=== PATIENT | male | born 1940 | race Caucasian/White ===

== ENCOUNTER 2020-04-03 05:58 | Emergency (ER) | payer MEDICARE, BC ==
[~2020-04-03] VITALS: Ht 182.9 cm; Wt 100.0 kg
[2020-04-03] MEDS ORDERED: morphine 4 MG/ML inj SYRINge IV ONE (06:30)
[2020-04-03 06:43] LABS: ALANINE AMINOTRANSFERASE 29 U/L (12-78); ALBUMIN 3.6 G/DL (3.4-5.0); ALKALINE PHOSPHATASE 80 IU/L (46-116); ANION GAP 8 (8-16); ASPARTATE AMINO TRANSFERASE 18 U/L (10-37); BILIRUBIN,TOTAL 0.6 MG/DL (0.1-1.0); BLOOD UREA NITROGEN 25 MG/DL (7-18); BUN/CREATININE RATIO 17.2 (5.4-32.0); CALCIUM 8.7 MG/DL (8.5-10.1); CHLORIDE 106 MMOL/L (99-107); CREATININE 1.45 MG/DL (0.60-1.10); GLUCOSE 146 MG/DL (70-104); POTASSIUM 4.2 MMOL/L (3.5-5.1); SODIUM 141 MMOL/L (135-145); TOTAL CARBON DIOXIDE 27.1 MMOL/L (24-32); TOTAL PROTEIN 7.2 G/DL (6.4-8.2); eGFR 47 ML/MIN
[2020-04-03 06:46] LABS: BASOPHILS # (AUTO) 0.1 X10'3 (0-0.2); BASOPHILS % (AUTO) 0.5 % (0-1); EOSINOPHILS # (AUTO) 0.1 X10'3 (0-0.9); EOSINOPHILS % (AUTO) 0.6 % (0-6); HEMOGLOBIN 13.7 g/dl (14.0-17.9); LYMPHOCYTES # (AUTO) 0.9 X10'3 (1.1-4.8); LYMPHOCYTES % (AUTO) 7.1 % (21-51); MEAN CORPUSCULAR HGB CONC 33.3 g/dL (33.0-36.5); MEAN CORPUSCULAR VOLUME 96.2 FL (78-98); MEAN PLATELET VOLUME 9.5 FL (7.4-10.4); MONOCYTES # (AUTO) 0.9 X10'3 (0-0.9); MONOCYTES % (AUTO) 7.5 % (2-12); NEUTROPHILS # (AUTO) 10.5 X10'3 (1.8-7.7); NEUTROPHILS % (AUTO) 84.3 % (42-75); PLATELET COUNT 172 X10'3 (140-440); RED BLOOD COUNT 4.27 X10'6 (4.70-6.10); RED CELL DISTRIBUTION WIDTH 14.7 % (11.5-14.5); WHITE BLOOD COUNT 12.4 X10'3 (4.5-11.0)
[2020-04-03] MEDS ORDERED: iohexol 300mg/ml 100ml inj. ONE (06:52)
--- NOTE | 2020-04-03 07:05 | NUR ---
OUT TO CT VIA GURNEY WITH PRIMARY RN
--- NOTE | 2020-04-03 07:20 | NUR ---
pt cleared off of trauma status after provider read CT report
--- NOTE | 2020-04-03 07:28 | NUR ---
RETURNS FROM CT
[2020-04-03] MEDS ORDERED: morphine 10mg/ml inj. IV ONE (07:45)
[2020-04-03] MEDS ORDERED: HYDROmorphone 1 mg/ml syringe IV ONE (07:45)
[2020-04-03] MEDS ORDERED: OXYC-145 PO (09:47)
[2020-04-03] MEDS ORDERED: IBUP-1985 PO (09:47)
[2020-04-03] MEDS ORDERED: oxyCODONE/APAP 5-325mg tablet PO ONE (11:25)
[2020-04-03 11:58] VITALS: BP 114/79
== END 2020-04-03 12:00 | disposition home or self-care (01) ==
LOC: ER 05:58
DX: S62.112A Displaced fracture of triquetrum [cuneiform] bone, left wrist, initial encounter for closed fracture (principal); R07.89 Other chest pain; M43.12 Spondylolisthesis, cervical region; S00.211A Abrasion of right eyelid and periocular area, initial encounter; H11.31 Conjunctival hemorrhage, right eye; W01.198A Fall on same level from slipping, tripping and stumbling with subsequent striking against other object, initial encounter; Y92.014 Private driveway to single-family (private) house as the place of occurrence of the external cause; Y93.89 Activity, other specified; I25.10 Atherosclerotic heart disease of native coronary artery without angina pectoris; I25.2 Old myocardial infarction; Z98.61 Coronary angioplasty status; Z79.899 Other long term (current) drug therapy; M54.9 Dorsalgia, unspecified; E11.9 Type 2 diabetes mellitus without complications; Z85.9 Personal history of malignant neoplasm, unspecified
CPT/HCPCS: 29125; 36415; 70450; 71260; 72125; 73110; 74177; 80053; 85025; 85610; 96374; 96375; 99285; J1170; J2270; Q9967